=== PATIENT | female | born 1980 | race Caucasian/White ===

== ENCOUNTER 2016-11-22 20:50 | Emergency (ER) | payer MEDICAID ==
[~2016-11-22] VITALS: Ht 139.7 cm; Wt 51.4 kg
[2016-11-22 20:52] VITALS: Ht 139.7 cm; Wt 51.4 kg
[2016-11-22] MEDS ORDERED: AMOXICILLIN 500 MG CAP PO STA (21:12)
[2016-11-22] MEDS ORDERED: KETOROLAC 30 MG INJ IM STA (21:12)
[2016-11-22] MEDS ORDERED: ACET325T33 PO (21:13)
[2016-11-22] MEDS ORDERED: AMO500 PO (21:13)
--- NOTE | 2016-11-22 21:20 | ERD ---
ER Documentation Chief Complaint Date/Time DATE: 11/22/16 TIME: 21:16 Chief Complaint 3 day hx fever, sore throat x 1 week, BL earache HPI This is a 36-year-old female presenting to the emergency room complaining of fever, sore throat, bilateral ear pain for the past 3 days. Patient states that the pain severity of her throat is 10 out of 10. Patient denies any nausea , vomiting, diarrhea or significant cough. Patient states that she has been taking Tylenol her last dose was at 2 PM. ROS All systems reviewed and are negative except as per history of present illness. Medications Home Meds Active Scripts Acetaminophen* (Tylenol*) 325 Mg Tablet, 2 TAB PO Q4 Y for PAIN AND OR ELEVATED TEMP, #30 TAB Prov:BRAN DOAN PA-C 11/22/16 Amoxicillin* (Amoxicillin*) 500 Mg Cap, 500 MG PO BID for 10 Days, CAP Prov:BRAN DOAN PA-C 11/22/16 Allergies Allergies: Coded Allergies: No Known Allergy (Unverified , 11/22/16) PMhx/Soc Medical and Surgical Hx: pt denies Medical Hx, pt denies Surgical Hx Hx Alcohol Use: No Hx Substance Use: No Hx Tobacco Use: No Smoking Status: Never smoker Physical Exam Vitals Vital Signs Date Time Temp Pulse Resp B/P Pulse Ox O2 Delivery O2 Flow Rate FiO2 11/22/16 20:52 99.5 81 16 138/84 99 Physical Exam GENERAL: well-developed/well-nourished, in no apparent distress, non-toxic appearing HEAD: NC/AT, no swelling noted in frontal or maxillary areas EARS: bilateral tympanic membrane is intact without erythema or effusion NARES: Congested THROAT: oropharynx erythematous with tonsillar exudate EYES: Conjunctiva normal NECK: Bilateral cervical lymphadenopathy PULM: CTA bilaterally, no rales, rhonchi, or wheezing heard CV: Normal S1S2, RRR, good capillary refill GI: Soft, non-distended, normal bowel sounds, non-tender BACK: No midline tenderness, no masses EXT No clubbing, cyanosis, or edema NEURO: Alert and Orientated SKIN: Intact, normal turgor PSYCH: Normal mood and mentation Results 24 hrs Current Medications Medications (Trade) Dose Ordered Sig/Roni Route PRN Reason Start Time Stop Time Status Last Admin Dose Admin Ketorolac Tromethamine (Toradol) 30 mg ONCE STAT IM 11/22/16 21:12 11/22/16 21:13 DC Amoxicillin (Amoxicillin) 500 mg ONCE STAT PO 11/22/16 21:12 11/22/16 21:13 DC Procedures/MDM This is a 36-year-old female presenting to the emergency department complaining of fever, sore throat and bilateral ear pain for the past 3 days. On examination patient had erythematous oropharynx or tonsillar exudates, she had cervical adenopathy and a history of fever. In addition patient had absent cough therefore she met 4 out of 4 Cent[facility] criteria and she will be treated with amoxicillin. There was no evidence of peritonsillar abscess, retropharyngeal abscess or Ankur's angina. In the ED patient was given amoxicillin and a Toradol shot. Patient is stable for discharge to follow-up with the primary care physician or return to the ER for any worsening signs or symptoms. She understands and agrees with this plan Departure Diagnosis: Primary Impression: Pharyngitis Condition: Stable Patient Instructions: Pharyngitis, Strep (Presumed) [facility] Usted se garrett hecho un examen mdico de control que le indica que no est en perla condicin que requiera tratamiento urgente en el Departamento de Emergencia. Un estudio ms profundo y el tratamiento de rubio condicin pueden esperar sin ningn riesgo hasta que usted sea atendida/o en el consultorio de rubio mdico o perla cl regi. Es responsabilidad suya arreglar perla geovany para el seguimiento del alexis. MANEJO DE CONDICIONES NO URGENTES EN EL FUTURO 1) Si usted tiene un mdico de atencin primaria: Usted debera llamar a rubio mdico de atencin primaria antes de venir al departamento de emergencia. Despus de las horas de consultorio, rubio doctor o rubio asociado/a est disponible por telfono. El mdico o enfermero de franky en el servicio telefnico puede asesorarle por micki medio para atender el problema, o alexis contrario se puede programar perla geovany. 2) Si usted no tiene un mdico de atencin primaria: Llame al mdico o clnica de referencia que aparece abajo genie las horas de consultorio para hacer perla geovany para que le vean. CLINICAS: [facility] [phone] [id number] [facility] [phone] [facility] [phone] [place] [phone] [place] [id number] [phone] [facility] [facility] [phone] [address] Additional Instructions: Visite a rubio mdico maana para un EXAMEN.Regrese a estas instalaciones si no se mejora jessica esperbamos o jessica le dijimos. [place] toda la medicina lashanda y jessica se le indic. Regrese a estas instalaciones si no se mejora jessica esperbamos o jessica le dijimos. BRAN DOAN PA-C Nov 22, 2016 21:20
[2016-11-22 21:54] VITALS: BP 130/81; PULSE 78; RESP 16; TEMP 98.9
== END 2016-11-22 21:56 | disposition home or self-care (01) ==
LOC: FTE 21:33
DX: J02.9 Acute pharyngitis, unspecified (principal)
CPT/HCPCS: J1885; Z7610; 96372